=== PATIENT | male | born 1970 | race Caucasian/White ===

== ENCOUNTER 2018-09-08 09:22 | Emergency (ER) | payer MEDICAID ==
[2018-09-08] MEDS: DIPHTH/TET/ACEL PERTUSS (ADULT) 0.5 ML VIAL IM* (10:52)
[2018-09-08] MEDS: LIDOCAINE 1% (MDV) 20 ML INJ SC (10:53)
[2018-09-08] MEDS: ACETAMINOPHEN 325 MG TAB PO (10:53)
== END 2018-09-08 11:48 | disposition home or self-care (01) ==
LOC: FTE 09:22
DX: S61.211A Laceration without foreign body of left index finger without damage to nail, initial encounter (principal); W25.XXXA Contact with sharp glass, initial encounter; Y92.9 Unspecified place or not applicable; Z23 Encounter for immunization
CPT/HCPCS: 12001; 90471; 90715; 99283-25

== ENCOUNTER 2018-09-15 13:12 | Emergency (ER) | payer MEDICAID | END 2018-09-15 14:15 | disposition home or self-care (01) | LOC: FTE 13:12 | DX: Z48.02 Encounter for removal of sutures (principal) | CPT/HCPCS: 99281; Z7502 ==